=== PATIENT | female | born 1955 | race Caucasian/White ===

== ENCOUNTER → 2018-04-02 09:02 | Outpatient (CLI) | payer OTHER, SELFPAY ==
[2018-04-02 10:41] LABS: ALB/GLOB Ratio 1.1 RATIO (0.9-2.4); AST(SGOT) 28 U/L (15-37); Alanine Aminotransfer ALT/SGPT 34 U/L (13-56); Albumin, Serum 3.8 g/dL (3.2-5.0); Alkaline Phosphatase 44 U/L (45-117); Anion Gap 6 (5-15); BUN 18 mg/dL (7-18); Calcium,Total 8.6 mg/dL (8.5-10.1); Chloride 101 mmol/L (98-107); Creatinine, Serum 0.69 mg/dL (0.55-1.02); EST Glomerular Filtration Rate 90 mL/min (>60); Est Glom Filt Rate - Afr Amer 109 mL/min (>60); Globulin 3.6 g/dL (2.2-4.2); Glucose 93 mg/dL (74-106); Potassium 3.6 mmol/L (3.5-5.1); Protein, Total 7.4 g/dL (6.4-8.2); Sodium Level 137 mmol/L (136-145)
== END ==
PROVIDERS: Family Provider Family Medicine; PCP Family Medicine; Referring Provider Family Medicine; Visit Provider Family Medicine
DX: Z00.00 Encounter for general adult medical examination without abnormal findings (principal)
CPT/HCPCS: 36415; 80053

== ENCOUNTER → 2021-04-03 13:33 | Outpatient (CLI) | payer MEDICARE, OTHER, SELFPAY ==
--- NOTE | 2021-04-03 13:37 | BI_ITS ---
MAMMOGRAPHY - BILATERAL SCREENING 3-D TOMOSYNTHESIS REASON FOR EXAM: Female, 65 years old. Routine screening PERTINENT HISTORY: No significant family history. TECHNIQUE: 2-D mammograms and 3-D Tomosynthesis of the breast (s) were performed. CAD was performed. COMPARISON: 2016 FINDINGS: The breast composition is heterogeneously dense that can obscure small breast masses. Scattered benign calcifications are seen. No dense spiculated masses or suspicious microcalcifications are identified. No architectural distortion is identified. There is no skin thickening or retraction. There has been no significant change since the prior study. BI/SCRN MAMM (CAD)W/SHELLY BILAT IMPRESSION: No mammographic signs of malignancy. Routine yearly mammograms recommended. ASSESSMENT CATEGORY: BIRADS Category 2: Benign. A letter regarding these results will be sent to the patient by the facility within 30 days. FOLLOW UP RECOMMENDATION: Yearly follow up mammogram recommended. (A) Approximately 10% of breast cancers are not detected by mammography. A normal mammogram should not delay biopsy of a clinically suspicious abnormality. Electronically Signed: Darrell Bradford MD at 10:17 EST , Service support ,
== END ==
PROVIDERS: PCP Family Medicine; Referring Provider Family Medicine; Visit Provider Family Medicine
DX: Z12.31 Encounter for screening mammogram for malignant neoplasm of breast (principal)
CPT/HCPCS: 77063; 77067

== ENCOUNTER → 2022-03-10 | Outpatient (CLI) | payer MEDICARE, OTHER, SELFPAY ==
[2022-03-10 12:18] LABS: Absolute Lymphocyte Count 1.31 X10^3/uL (0.83-4.51); Absolute Neutrophil Count 2.7 X10^3/uL (2.0-7.7); Basophil# 0.02 X10^3/uL; Basophil% 0.4 % (0-1); Eosinophil# 0.04 X10^3/uL; Eosinophils% 0.9 % (0-5); Hematocrit 37.9 % (37-47); Hemoglobin 12.7 g/dL (12.0-15.0); Lymphocyte # 1.31 X10^3/ul (0.83-4.51); Mean Corp Hgb Conc 33.5 g/dL (32-36); Mean Corpuscular Hgb 33.7 pg (27.0-32.0); Mean Corpuscular Volume 100.5 fL (81-99); Monocyte# 0.39 X10^3/uL; Monocyte% 8.6 % (0-10); NRBC Flagged by Analyzer 0 % (0-5); Neutrophil # 2.74 X10^3/uL (2.7-7.7); Neutrophil % 60.9 % (47-70); Platelet Count 228 K/mm3 (150-450); RBC Distribution Width CV 13.9 % (11.6-14.6); RBC Distribution Width SD 51.2 fl (35.1-43.9); Red Blood Count 3.77 M/mm3 (4.2-5.4); White Blood Count 4.5 K/mm3 (4.4-11.0)
[2022-03-10 13:44] LABS: AST(SGOT) 34 U/L (15-37); Alanine Aminotransfer ALT/SGPT 43 U/L (13-56); Albumin, Serum 3.7 g/dL (3.2-5.0); Alkaline Phosphatase 43 U/L (45-117); Anion Gap 8 (5-15); BUN 20 mg/dL (7-18); BUN/Creat Ratio 26.5 RATIO (10-20); Chloride 101 mmol/L (98-107); Cholesterol 238 mg/dL (200); Creatinine, Serum 0.76 mg/dL (0.55-1.02); EST Glomerular Filtration Rate 81 mL/min (>60); Est Glom Filt Rate - Afr Amer 98 mL/min (>60); Globulin 3.7 g/dL (2.2-4.2); Glucose 96 mg/dL (74-106); High Density Lipoprotein 85 mg/dL; Potassium 3.8 mmol/L (3.5-5.1); Protein, Total 7.4 g/dL (6.4-8.2); Sodium Level 139 mmol/L (136-145); Triglycerides 63 mg/dL; Very Low Density Lipoprotein 13 mg/dL (5-40)
[2022-03-10 13:59] LABS: Hemoglobin A1c 5.9 % (3.8-5.6)
== END | disposition home or self-care (01) ==
LOC: BFHLAB 08:14
PROVIDERS: PCP Family Medicine; Visit Provider Family Medicine
DX: Z00.00 Encounter for general adult medical examination without abnormal findings (principal); R74.8 Abnormal levels of other serum enzymes; R73.01 Impaired fasting glucose
CPT/HCPCS: 36415; 80053; 80061; 83036; 85025

== ENCOUNTER 2022-04-16 09:36 | Outpatient (CLI) | payer MEDICARE, OTHER, SELFPAY ==
--- NOTE | 2022-04-16 09:39 | BI_ITS ---
MAMMOGRAPHY - BILATERAL SCREENING REASON FOR EXAM: Female, 66 years old. Routine annual screening examination. PERTINENT HISTORY: Non-contributory. TECHNIQUE: Digital bilateral breast shelly (3D mammographic acquisition) in the CC and MLO projections. 2-D mediolateral oblique (MLO) and craniocaudad (CC) views of both breasts were obtained. CAD: Full Field Digital Mammography with Computer Added Detection was performed. COMPARISON: 04/03/2021, 04/15/2016 FINDINGS: Breast Composition: The breasts are heterogeneously dense, which may obscure small masses. There are no dominant masses or suspicious calcifications. No other significant abnormalities are identified. There has been no significant change since the prior study. BI/SCRN MAMM (CAD)W/SHELLY BILAT IMPRESSION: Stable bilateral screening mammogram. Yearly follow-up mammogram recommended. (A) ASSESSMENT CATEGORY: BIRADS Category 1: Negative. A letter regarding these results will be sent to the patient by the facility within 30 days. Approximately 10% of breast cancers are not detected by mammography. A normal mammogram should not delay biopsy of a clinically suspicious abnormality. Electronically Signed: Fredrick Hendrxi, at 14:44 EST ,
--- NOTE | 2022-04-16 10:01 | BD_ITS ---
STUDY: DUAL ENERGY X-RAY ABSORPTIOMETRY / DXA REASON FOR EXAM: Female, 66 years old. M85.89 TECHNIQUE: Bone Mineral Density (BMD) measurements of lumbar spine and bilateral hips were obtained. COMPARISON: Comparison is made with prior study dated 06/26/2015. FINDINGS: Lumbar Spine (L1-L4): g/cm2 (0.827) / T-score (-2.0) / Z-score (0.0) Findings are suggestive of osteopenia with a moderate fracture risk. Left Femur Total: g/cm2 (0.910) / T-score (-0.3) / Z-score (1.2) Left Femoral Neck: g/cm2 (0.817) / T-score (-0.3) / Z-score (1.4) Right Femur Total: g/cm2 (0.895) / T-score (-0.4) / Z-score (1.0) Right Femoral Neck: g/cm2 (0.815) / T-score (-0.3) / Z-score (1.4) The T-Scores on the most recent prior examination were: Lumbar Spine (L1-L4): There has been worsening of bone density since the previous examination. Left Femur Total: which represents a worsening of 17.6%. Right Femur Total: which represents a worsening of 16.9%. BD/Dexa Bone Density Study IMPRESSION: The patient is considered osteopenic as outlined below according to World Julito Organization (WHO) criteria with a moderate fracture risk. There has been worsening of bone density since the previous examination. Reference Information: The T-score is the number of standard deviations above or below the standard which is normal for young adults at their peak bone mineral density. The World Health Organization (WHO) interprets the T-scores as follows: Above -1 Normal bone density Between -1 and -2.5 Osteopenia Equal to / or below -2.5 Osteoporosis As a practical clinical guideline, osteopenia may be graded as follows: Mild -1 through -1.5 Moderate -1.6 through -2.0 Severe -2.1 through -2.4 The Z-score is the number of standard deviations above or below age-matched controls. A Z-score of less than -1.5 would be considered abnormal. References: 1. NIH Osteoporosis and Related Bone Diseases www osteo.org 2. International Society for Clinical Densitometry www iscd.org 3. National Osteoporosis Foundation www nof.org Electronically Signed: Cayden Harrington MD at 15:00 EST ,
== END 2022-04-16 23:59 | disposition home or self-care (01) ==
LOC: OPBD 09:36
PROVIDERS: PCP Family Medicine; Visit Provider Family Medicine
DX: Z12.31 Encounter for screening mammogram for malignant neoplasm of breast (principal); M85.89 Other specified disorders of bone density and structure, multiple sites; N95.1 Menopausal and female climacteric states
CPT/HCPCS: 77063; 77067; 77080

== ENCOUNTER 2022-05-07 09:31 | Observation (INO) | payer MEDICARE, OTHER, SELFPAY ==
[2022-05-07] VITALS (11 sets, daily range): BP systolic 111–154; BP diastolic 71–85; PULSE 55–66; RESP 16–24; TEMP 36.2–37; O2SAT 93–100; BMI 24.4; BMI 23.4
--- NOTE | 2022-05-07 09:42 | EKG12_ITS ---
Test Reason : CP Blood Pressure : / mmHG Vent. Rate : 056 BPM Atrial Rate : 056 BPM P-R Int : 168 ms QRS Dur : 078 ms QT Int : 462 ms P-R-T Axes : 072 -41 -07 degrees QTc Int : 445 ms Sinus bradycardia Possible Left atrial enlargement Left axis deviation Nonspecific ST abnormality Abnormal ECG Confirmed by VERNON SIDDIQUI, MANUEL ([id number]), editor sound YANELY ALONSO ([id number]) on 05/09/2022 10:43:28 AM Referred By: MONIQUE Confirmed By:ELLYN JUNIOR MD
--- NOTE | 2022-05-07 09:43 | ED.VIS.CHEST ---
HPI History of Present Illness Chief Complaint: Chest Pain Narrative Narrative: 66-year-old female who denies significant past medical history presents with left shoulder and arm pain that began at 5:00 this morning, almost 5 hours ago. She states she got up to go to the bathroom, did not necessarily wake her from sleep. She felt pain in her left shoulder and pain going down her left arm. She was nauseated and queasy and maybe a little lightheaded, but denies any vomiting. No shortness of breath or diaphoresis. The queasiness lasted a few hours until maybe 30 minutes ago. States the pain is relatively constant. She does relate history that she was lifting weights on Thursday and may have felt this pain yesterday. She denies any leg swelling. Factors. PFSH PFSH Medical History no medical history Home Medications cholecalciferol (vitamin D3) 25 mcg (1,000 unit) tablet (Vitamin D3) 25 mcg PO DAILY 05/07/22 [History Last Taken Unknown] multivitamin 1 tab PO DAILY 05/07/22 [History Last Taken Unknown] Allergy/AdvReac Type Severity Reaction Status Date / Time Sulfa (Sulfonamide Allergy Hives Verified 05/07/22 09:31 Antibiotics) Social History Smoking Status: Never smoker ROS ROS ED ROS Narrative Constitutional: No fever, no chills. HEENT: No sore throat. No neck pain. No loss of vision. No rhinorrhea. Cardiovascular: No chest pain. Left shoulder pain and pain down left arm. No palpitations. No pedal edema. Respiratory: No cough, no shortness of breath. Abdominal: No abdominal pain. Positive nausea. No vomiting. Genitourinary: No dysuria. No hematuria. Musculoskeletal: No myalgias. No arthralgias. Neurologic: No headaches. No dizziness. No lightheadedness. Skin: No rash. No change in color. Psychiatric: No depression. No anxiety. EXAM Physical Exam Narrative Exam Narrative: Afebrile. Vital signs noted. HEENT: Normocephalic. Atraumatic. PERRL, EOMI. Neck soft and supple. No point tenderness or step off. Cardiovascular: Regular rate and rhythm. No murmurs, rubs, or gallops appreciated. Respiratory: No tachypnea. Lungs clear to auscultation bilaterally. Gastrointestinal: Abdomen soft, nontender, with normoactive bowel sounds. No rebound or guarding. Neurological: Awake. Alert. Nonfocal, nonlateralizing. Skin: No rash. Normal color. No pallor. Musculoskeletal: No pedal edema. Full range of motion extremities. Const Vital Signs: 05/07/22 09:31 05/07/22 09:38 05/07/22 09:59 Temperature 97.5 F L Temperature Source Temporal Pulse Rate 57 L Respiratory Rate 16 Respiratory Effort Normal Respiratory Pattern Normal Blood Pressure 154/76 H Blood Pressure Mean 102 Pulse Ox 98 99 Oxygen Delivery Method Room Air Room Air 05/07/22 10:36 05/07/22 12:00 05/07/22 13:00 Temperature Temperature Source Pulse Rate 55 L 56 L 60 Respiratory Rate 16 24 H 19 H Respiratory Effort Respiratory Pattern Blood Pressure 111/71 126/75 H 123/73 H Blood Pressure Mean 84 92 89 Pulse Ox 100 100 99 Oxygen Delivery Method Room Air Room Air Room Air Heart Score History: Slightly/Non-Suspicious ECG: Normal Age: >/= 65 years Risk Factors: No Risk Factors Troponin: >1 - <3 Normal Limit Score: 3 MDM MDM MDM Narrative Medical decision making narrative: Chest pain work-up was pursued. EKG interpreted by myself demonstrates sinus bradycardia at 56 bpm without ectopy. She may have slight ST depression in leads V4 through V6 and laterally by 1 mm. No STEMI. She was administered aspirin. She has slightly elevated blood pressure of 154/76 without history of hypertension, however this may be situational. Blood pressure has normalized. CBC shows normal white count of 6.0 with hemoglobin 13.3, hematocrit 39.5. Platelet count normal at 218. She had already taken 162 mg of baby aspirin so she was given an additional 162. Potassium slightly low at 3.3. This will be replaced orally. BUN and creatinine are normal. Glucose appropriately elevated at 158 with an anion gap low at 3. High-sensitivity troponin initially is 86. I will discuss patient with cardiology. Chest x-ray interpreted by myself shows no acute process. Initial high-sensitivity troponin is elevated at 86, above the normal. Repeat is 83. I discussed patient with Dr. Naylor with cardiology who states that while the patient should be brought into the hospital for stress testing, that heparin can be avoided emergently and deferred. I will discuss patient with the hospitalist. I discussed the patient with Dr. Vogt. Disposition is assigned to observation in stable condition. Lab Data Attestation: I reviewed the patient's lab results. Labs: Laboratory Results - last 24 hr 05/07/22 05/07/22 05/07/22 09:40 09:40 12:20 WBC 6.0 RBC 4.01 L Hgb 13.3 Hct 39.5 MCV 98.5 MCH 33.2 H MCHC 33.7 RDW Std Deviation 45.8 H RDW Coeff of Shady 12.7 Plt Count 218 MPV 9.4 Immature Gran % (Auto) 0.200 Neut % (Auto) 64.6 Lymph % (Auto) 26.5 Leslie % (Auto) 8.4 Eos % (Auto) 0.3 Baso % (Auto) 0.0 Absolute Neuts (auto) 3.9 Absolute Lymphs (auto) 1.58 Nucleated RBC % 0 Sodium 134 L Potassium 3.3 L Chloride 100 Carbon Dioxide 31.0 Anion Gap 3 L BUN 17 Creatinine 0.68 Estim Creat Clear Calc 46.50 Est GFR (MDRD) Af Amer 111 Est GFR (MDRD) Non-Af 91 BUN/Creatinine Ratio 25.0 H Glucose 158 H Calcium 9.0 Troponin I High Sens 86 H 83 H Radiography Diagnostic Testing: Clinical Impression(s) from Imaging Studies Chest X-Ray 05/07/22 10:00 IMPRESSION: Borderline cardiomegaly. The lungs are clear. Electronically Signed: Cayden Harrington MD at 10:27 EST , Discharge Plan Dx/Rx/DC Orders Clinical Impression: Shoulder pain, Left arm pain, Anginal equivalent, Elevated troponin Disposition Disposition: Acute Care Hospital [facility]
[2022-05-07 09:50] LABS: Absolute Lymphocyte Count 1.58 X10^3/uL (0.83-4.51); Absolute Neutrophil Count 3.9 X10^3/uL (2.0-7.7); Eosinophil# 0.02 X10^3/uL; Eosinophils% 0.3 % (0-5); Hematocrit 39.5 % (37-47); Hemoglobin 13.3 g/dL (12.0-15.0); Lymphocyte # 1.58 X10^3/ul (0.83-4.51); Lymphocyte % 26.5 % (19-41); Mean Corp Hgb Conc 33.7 g/dL (32-36); Mean Corpuscular Hgb 33.2 pg (27.0-32.0); Mean Corpuscular Volume 98.5 fL (81-99); Mean Platelet Vol. 9.4 fl (6.2-12.0); Monocyte% 8.4 % (0-10); NRBC Flagged by Analyzer 0 % (0-5); Neutrophil # 3.85 X10^3/uL (2.7-7.7); Neutrophil % 64.6 % (47-70); Platelet Count 218 K/mm3 (150-450); RBC Distribution Width CV 12.7 % (11.6-14.6); RBC Distribution Width SD 45.8 fl (35.1-43.9); Red Blood Count 4.01 M/mm3 (4.2-5.4)
--- NOTE | 2022-05-07 10:00 | RAD_ITS ---
STUDY: X-RAY CHEST REASON FOR EXAM: Female, 66 years old. Left shoulder and left arm pain. TECHNIQUE: Single AP portable view of the chest. COMPARISON: None. FINDINGS: EKG electrodes are seen. The lungs are clear and expanded. There is no demonstrated pleural abnormality. There is borderline cardiomegaly. Normal mediastinum and walter. Normal visualized pulmonary arteries. Normal visualized aortic arch and descending thoracic aorta. Normal visualized thoracic spine. Normal visualized ribs, clavicles, and shoulders. There is no demonstrated abnormality of the visualized soft tissue structures of the upper abdomen. RAD/Chest 1 View (Portable) IMPRESSION: Borderline cardiomegaly. The lungs are clear. Electronically Signed: Cayden Harrington MD at 10:27 [facility] ,
[2022-05-07 10:04] LABS: Anion Gap 3 (5-15); BUN 17 mg/dL (7-18); Chloride 100 mmol/L (98-107); Creatinine, Serum 0.68 mg/dL (0.55-1.02); EST Glomerular Filtration Rate 91 mL/min (>60); Est Glom Filt Rate - Afr Amer 111 mL/min (>60); Glucose 158 mg/dL (74-106); Potassium 3.3 mmol/L (3.5-5.1); Sodium Level 134 mmol/L (136-145); Troponin-I HS (w/2H Reflex) 86 pg/mL (3.0-54.0)
[2022-05-07] MEDS: Aspirin 81 MG TAB.CHEW 324 MG PO (10:33)
[2022-05-07 11:47] LABS: Reflex Troponin-HS? (from REC) Y
[2022-05-07] MEDS: Potassium Chloride Oral Tablet 20 MEQ 40 MEQ PO ×2 (12:15→18:08)
[2022-05-07 12:48] LABS: Troponin-I HS 83 pg/mL (3.0-54.0)
--- NOTE | 2022-05-07 13:16 | HP.PCM.HOS_ITS ---
HPI - General General Date of Admission: 05/07/22 Date of Service: 05/07/22 Chief Complaint: Atypical left scapular and arm pain HPI Narrative MIGUEL EVANS, is a 66 F relatively healthy woman with no history of coronary artery disease came to ED for concern of atypical anginal pain. Patient had left scapular pain that radiates to left inner arm and elbow that lasted for about half an hour yesterday. Yesterday she did usual house chores like cleaning of her home and attributed to that. She also does exercise walking about 1 mile daily and a little bit weight lifting. Today she also had similar left scapular pain with radiation to arm and she was concerned therefore came to ED. Left scapular pain lasted for about 1 to 2-hour and got better when she took aspirin 162 mg at home. She also felt dizzy lightheaded and vertigo that lasted for half an hour. She denies shortness of breath. She does not have chronic heart disease or lung disease. She denies smoking alcohol use or substance use. Her father had history of early coronary disease and at massive heart attack when he was 59. Her mother also had a stroke and diabetes melitis Twelve-lead EKG in ER shows sinus bradycardia at 56, LAD with nonspecific ST-T changes. She had EKG in February 2004 and was similar sinus rhythm 57 bpm. Troponins were mildly elevated. [facility] Medical History Migraines Medical History no medical history Home Medications RELIEF FACTOR 1 tab PO/SL DAILY [facility]MMUNE [facility] 05/07/22 [History Last Taken 05/06/22] aspirin 81 mg chewable tablet 81 mg PO DAILY HEALTH MAINTENANCE 05/07/22 [History Last Taken 05/07/22] cholecalciferol (vitamin D3) 25 mcg (1,000 unit) tablet (Vitamin D3) 25 mcg PO DAILY 05/07/22 [History Last Taken 05/06/22] multivitamin 1 tab PO DAILY SUPPLEMENT 05/07/22 [History Last Taken 05/06/22] Allergy/AdvReac Type Severity Reaction Status Date / Time Sulfa (Sulfonamide Allergy Hives Verified 05/07/22 09:31 Antibiotics) Surgical History History of carpal tunnel surgery of right wrist Social History Smoking Status: Never smoker ROS ROS Narrative Constitutional: Denies fever, URI symptoms. HEENT: No cough. Had COVID infection about 2 years ago reports systems reviewed and no addt'l complaints, except as documented Respiratory/Chest: As described in HPI Gastrointestinal: Denies coffee ground emesis, hematemesis or vomiting Genitourinary: Denies burning urination or new urinary tract symptoms Musculoskeletal: Denies joint pain and limited range of motion. Has good exercise capacity Neurologic: Denies seizure-like activity. No strokelike symptoms, focal weakness or numbness. skin: No ulcer. No rash Endocrinology: Reports systems reviewed and no addt'l complaints, except as do cumented Hematologic/Lymphatic: Reports systems reviewed and no addt'l complaints, except as documented Rest 14 ROS are negative except as mentioned in HPI Vital Signs Vital Signs Vital Signs: 05/07/22 09:31 05/07/22 09:38 05/07/22 09:59 Temperature 97.5 F L Temperature Source Temporal Pulse Rate 57 L Respiratory Rate 16 Respiratory Effort Normal Respiratory Pattern Normal Blood Pressure 154/76 H Blood Pressure Mean 102 Pulse Ox 98 99 Oxygen Delivery Method Room Air Room Air 05/07/22 10:36 05/07/22 12:00 05/07/22 13:00 Temperature Temperature Source Pulse Rate 55 L 56 L 60 Respiratory Rate 16 24 H 19 H Respiratory Effort Respiratory Pattern Blood Pressure 111/71 126/75 H 123/73 H Blood Pressure Mean 84 92 89 Pulse Ox 100 100 99 Oxygen Delivery Method Room Air Room Air Room Air Weight Weight: 142 lb 4.8 oz Body Mass Index (BMI) 24.4 Physical Exam Narrative Physical exam General: Alert, Oriented x3, Cooperative HEENT: Atraumatic, PERRLA, EOMI, Normocephalic Oral: No Gingival or Mucosal Lesions/ Ulcerations Neck: Supple, No JVD, Negative Carotid Bruits Lungs: Air entry diminished in bilateral lung bases. No crepitation/rhonchi Cardiovascular: Sinus bradycardia, Normal S1, Normal S2, midsystolic murmur LLSB and right second ICS Abdomen: Bowel Sounds Present, Soft, Non Tender, Non-Distended : No renal angle tenderness. No suprapubic tenderness. Extremities: No edema, Capillary Refill Less than 3 Seconds Skin: No rashes, No breakdown Musculoskeletal: No Tenderness to Palpation of Joints or Extremities, muscle strength 5/5 at major joints Neurological: Cranial nerves II-XII grossly intact, DTR 2+/4 and Symmetrical, Neuro grossly intact Psych/Mental Status: Normal Affect, Appropriate. Results Lab / Micro Data Result Diagrams: 05/07/22 09:40 05/07/22 09:40 Labs: Laboratory Results - last 24 hr 05/07/22 09:40: WBC 6.0, RBC 4.01 L, Hgb 13.3, Hct 39.5, MCV 98.5, MCH 33.2 H, MCHC 33.7, RDW Std Deviation 45.8 H, RDW Coeff of Shady 12.7, Plt Count 218, MPV 9.4, Immature Gran % (Auto) 0.200, Neut % (Auto) 64.6, Lymph % (Auto) 26.5, [place] % (Auto) 8.4, Eos % (Auto) 0.3, Baso % (Auto) 0.0, Absolute Neuts (auto) 3.9, Absolute Lymphs (auto) 1.58, Nucleated RBC % 0 05/07/22 09:40: Sodium 134 L, Potassium 3.3 L, Chloride 100, Carbon Dioxide 31.0, Anion Gap 3 L, BUN 17, Creatinine 0.68, Estim Creat Clear Calc 46.50, Est GFR (MDRD) Af Amer 111, Est GFR (MDRD) Non-Af 91, BUN/Creatinine Ratio 25.0 H, Glucose 158 H, Calcium 9.0, Troponin I High Sens 86 H 05/07/22 12:20: Troponin I High Sens 83 H Radiology Impression Chest X-Ray 05/07/22 10:00 IMPRESSION: Borderline cardiomegaly. The lungs are clear. Electronically Signed: Cayden Harrington MD at 10:27 EST , Assessment & Plan Assessment/Plan (1) Anginal equivalent: PLAN: Plan This 66-year-old female relatively healthy came to ED for concern of anticoagulant 1. Left periscapular with radiation to arm concern for angina: Patient is being admitted as an observation status in PCU on telemetry. KAT RISK SCORE is 4 with age, aspirin use, angina 2 episodes and positive cardiac marker. Cycle high/troponin. ED physician discussed with Dr. Naylor. Troponins are mildly elevated and plateau 86 and 83. EKG nondiagnostic. Treadmill nuclear stress test ordered for tomorrow a.m. Patient looks dehydrated IV fluid Ringer lactate ordered. Fasting profile and TSH tomorrow AM. It seems patient takes baby aspirin for health maintenance 2. Hypokalemia: Potassium replaced. Serum magnesium and phosphorus level normal. Repeat potassium tomorrow a.m. 3. Remote history of migraine: Patient has not had recent migraine. She is not on any prophylactic migraine medication or acute headache relief medication 4. VTE prophylaxis, moderate risk: Lovenox 40 subcu daily. Living will/advanced directive/end of life care: Patient does not have living will or advanced directive. Her is next to kin to make decision after her. After discussion of benefits/risks procedures involved with full code, DNR CC arrest and DNR CC, the patient is unclear about the CODE STATUS but want to keep full code until further decision is made Patient does want artificial life support including intubation, tube feed, ventilator and/chest compression, central venous catheter, vasopressor and DC shock if needed Total time spent in [id number] encounter in discussion of advanced direct shabbir 16 minutes. Clinical Impression(s) from Imaging Studies Chest X-Ray 05/07/22 10:00 IMPRESSION: Borderline cardiomegaly. The lungs are clear. Laboratory Results 05/07/22 09:40: WBC 6.0, RBC 4.01 L, Hgb 13.3, Hct 39.5, MCV 98.5, MCH 33.2 H, MCHC 33.7, RDW Std Deviation 45.8 H, RDW Coeff of Shady 12.7, Plt Count 218, MPV 9.4, Immature Gran % (Auto) 0.200, Neut % (Auto) 64.6, Lymph % (Auto) 26.5, [place] % (Auto) 8.4, Eos % (Auto) 0.3, Baso % (Auto) 0.0, Absolute Neuts (auto) 3.9, Absolute Lymphs (auto) 1.58, Nucleated RBC % 0 05/07/22 09:40: Sodium 134 L, Potassium 3.3 L, Chloride 100, Carbon Dioxide 31.0, Anion Gap 3 L, BUN 17, Creatinine 0.68, Estim Creat Clear Calc 46.50, Est GFR (MDRD) Af Amer 111, Est GFR (MDRD) Non-Af 91, BUN/Creatinine Ratio 25.0 H, Glucose 158 H, Calcium 9.0, Troponin I High Sens 86 H 05/07/22 12:20: Troponin I High Sens 83 H 05/07/22 12:20: Phosphorus 2.9, Magnesium 2.1 Charges/Coding Visit Charges OBSV E&M: 60935 Initial observation care L3 Procedures Hospitalists Procedures: 65027 Advncd Care Plan 30 Min
[2022-05-07 13:40] LABS: Magnesium 2.1 mg/dL (1.6-2.6); Phosphorus 2.9 mg/dL (2.5-4.9)
[2022-05-07 17:10] LABS: Troponin-I HS 86 pg/mL (3.0-54.0)
[2022-05-07] MEDS: Enoxaparin 40 MG/0.4 ML Syringe SC (17:25)
[2022-05-07] MEDS: Lactated Ringers 1,000 ML 100 ML IV (17:25)
[2022-05-08] VITALS (7 sets, daily range): BP systolic 108–117; BP diastolic 68–81; PULSE 55–90; RESP 16–18; TEMP 36.6–36.8; O2SAT 98–100
[2022-05-08] MEDS: Lactated Ringers 1,000 ML 100 ML IV (02:25)
--- NOTE | 2022-05-08 05:55 | EKG12_ITS ---
Test Reason : AM EKG Blood Pressure : / mmHG Vent. Rate : 059 BPM Atrial Rate : 059 BPM P-R Int : 168 ms QRS Dur : 076 ms QT Int : 450 ms P-R-T Axes : 019 -30 -20 degrees QTc Int : 445 ms Sinus bradycardia Left axis deviation Abnormal ECG When compared with ECG of 07-MAY-2022 09:37, MANUAL COMPARISON REQUIRED, DATA IS UNCONFIRMED Confirmed by VERNON SIDDIQUI, MANUEL ([id number]), website/blog editor YANELY ALONSO ([id number]) on 05/09/2022 10:51:11 AM Referred By: NANY Confirmed By:ELLYN JUNIOR MD
[2022-05-08] MEDS: Aspirin E.C. 81 MG Tablet PO (06:39)
[2022-05-08 06:48] LABS: Anion Gap 7 (5-15); BUN 11 mg/dL (7-18); Calcium,Total 9.1 mg/dL (8.5-10.1); Chloride 103 mmol/L (98-107); Cholesterol 260 mg/dL (200); Creatinine, Serum 0.65 mg/dL (0.55-1.02); EST Glomerular Filtration Rate 97 mL/min (>60); Est Glom Filt Rate - Afr Amer 117 mL/min (>60); Glucose 97 mg/dL (74-106); High Density Lipoprotein 88 mg/dL; Potassium 3.6 mmol/L (3.5-5.1); Sodium Level 138 mmol/L (136-145); Thyroid Stim Hormone (TSH) 8.32 uIU/mL (0.358-3.74); Triglycerides 75 mg/dL; Very Low Density Lipoprotein 15 mg/dL (5-40)
--- NOTE | 2022-05-08 09:37 | DCINST_ITS ---
Discharge Instructions Diet Discharge Diet: Low fat / Low cholesterol Activity Weight Bearing Status: Weight bearing as tolerated Dressing / Incision Call your doctor if you observe: Fever of 101 or Higher, Coldness, Increased P ain, Numbness or Tingling, Change in Color, Inability to urinate, Inability to have a bowel movement, Using more than 1 pad per hour, Shortness of breath, Dizziness, Fainting spells, Swelling in the ankles, Chest pain, Prolonged hiccupping, Increased palpitations (irregular heartbeat) and Calf discomfort Follow Up Care Test Results: Test results from this visit will be discussed in further detail at your follow- up appointment, if applicable. Discharge Plan Admission Admit Date/Time: 05/07/22 13:11 Primary Reason for Your Visit: ATYPICAL CHEST PAIN Attending Provider: Sean Vogt Primary Care Provider: Bee Flor Discharge Orders/Prescriptions Prescriptions: New atorvastatin 40 mg tablet 40 mg PO QHS Qty: 30 2RF Continued cholecalciferol (vitamin D3) [Vitamin D3] 25 mcg (1,000 unit) Tablet 25 mcg PO DAILY multivitamin Tablet 1 tab PO DAILY aspirin 81 mg Tablet,Chewable 81 mg PO DAILY RELIEF FACTOR 1 tab PO/SL DAILY Referrals / Follow Up: Bee Flor MD [Primary Care Provider] - Disposition Disposition (needs filled in before D/C Order can be placed): Home, Self Care
[2022-05-08] MEDS: Multivitamins,Therapeutic Tablet 1 TABLET PO (10:46)
[2022-05-08] MEDS: Cholecalciferol (VIT D3) 25 MCG TABLET (1,000 UNITS) PO (10:46)
--- NOTE | 2022-05-08 15:01 | PCM.DC.SUM ---
Providers Date of Admission: 05/07/22 Date of Discharge: 05/08/22 Primary Care Physician: Dr. Bee Flor MD Reason For Visit: ATYPICAL CHEST PAIN Diagnosis Discharge Diagnosis (1) Anginal equivalent: Status: Acute Code(s): I20.8 - Other forms of angina pectoris Plan This 66-year-old female relatively healthy came to ED for concern of anticoagulant 1. Left periscapular with radiation to arm concern for angina: Patient is being admitted as an observation status in PCU on telemetry. KAT RISK SCORE is 4 with age, aspirin use, angina 2 episodes and positive cardiac marker. Cycle high/troponin. ED physician discussed with Dr. Naylor. Troponins are mildly elevated and plateau 86 and 83 in nondiagnostic range for acute OK. EKG nondiagnostic. Treadmill nuclear stress test ordered for tomorrow a.m. Patient looks dehydrated IV fluid Ringer lactate was given. Fasting profile shows elevated LDL 157, total cholesterol 216. TSH 8.32, free T4 normal. Prescription for atorvastatin 40 mg sent to patient's pharmacy. Since patient might have subclinical hypothyroidism. Needs to repeat thyroid function test by PCP after 3 months. 2020 stress test was done and did not show any ischemia. OK/ACS ruled out 2. Hypokalemia: Potassium replaced. Serum magnesium and phosphorus level normal. Hypokalemia corrected 3. Remote history of migraine: Patient has not had recent migraine. She is not on any prophylactic migraine medication or acute headache relief medication 4. VTE prophylaxis, moderate risk: Lovenox 40 subcu daily. Laboratory Results 05/07/22 16:16: Troponin I High Sens 86 H 05/08/22 05:36: Sodium 138, Potassium 3.6, Chloride 103, Carbon Dioxide 28.0, Anion Gap 7, BUN 11, Creatinine 0.65, Estim Creat Clear Calc 46.50, Est GFR (MDRD) Af Amer 117, Est GFR (MDRD) Non-Af 97, BUN/Creatinine Ratio 17.0, Glucose 97, Calcium 9.1, Triglycerides 75, Cholesterol 260 H, LDL Cholesterol 157 H, VLDL Cholesterol 15, HDL Cholesterol 88, TSH 8.32 H 05/08/22 05:36: Free T4 1.17 Living will/advanced directive/end of life care: Patient does not have living will or advanced directive. Her is next to kin to make decision after her. After discussion of benefits/risks procedures involved with full code, DNR CC arrest and DNR CC, the patient is unclear about the CODE STATUS but want to keep full code until further decision is made Patient does want artificial life support including intubation, tube feed, ventilator and/chest compression, central venous catheter, vasopressor and DC shock if needed Total time spent in [id number] encounter in discussion of advanced directive 16 minutes. Clinical Impression(s) from Imaging Studies Chest X-Ray 05/07/22 10:00 IMPRESSION: Borderline cardiomegaly. The lungs are clear. Medications at Discharge Home Medications RELIEF FACTOR 1 tab PO/SL DAILY IMMUNE HEALTH 05/07/22 aspirin 81 mg chewable tablet 81 mg PO DAILY HEALTH MAINTENANCE 05/07/22 cholecalciferol (vitamin D3) 25 mcg (1,000 unit) tablet (Vitamin D3) 25 mcg PO DAILY 05/07/22 multivitamin 1 tab PO DAILY SUPPLEMENT 05/07/22 atorvastatin 40 mg tablet 40 mg PO QHS #30 tabs 05/08/22 Physical Exam Narrative Physical exam General: Alert, Oriented x3, Cooperative HEENT: Atraumatic, PERRLA, EOMI, Normocephalic Oral: No Gingival or Mucosal Lesions/ Ulcerations Neck: Supple, No JVD, Negative Carotid Bruits Lungs: Air entry diminished in bilateral lung bases. No crepitation/rhonchi Cardiovascular: Sinus bradycardia, Normal S1, Normal S2, midsystolic murmur LLSB and right second ICS Abdomen: Bowel Sounds Present, Soft, Non Tender, Non-Distended : No renal angle tenderness. No suprapubic tenderness. Extremities: No edema, Capillary Refill Less than 3 Seconds Skin: No rashes, No breakdown Musculoskeletal: No Tenderness to Palpation of Joints or Extremities, muscle strength 5/5 at major joints Neurological: Cranial nerves II-XII grossly intact, DTR 2+/4 and Symmetrical, Neuro grossly intact Psych/Mental Status: Normal Affect, Appropriate. Weight / BMI Weight Weight: 138 lb 0.15 oz Body Mass Index (BMI) 23.4 ABG / Lab / Microbiology Data Result Diagrams: 05/07/22 09:40 05/08/22 05:36 Laboratory: Laboratory Results - last 24 hr 05/07/22 16:16: Troponin I High Sens 86 H 05/08/22 05:36: Sodium 138, Potassium 3.6, Chloride 103, Carbon Dioxide 28.0, Anion Gap 7, BUN 11, Creatinine 0.65, Estim Creat Clear Calc 46.50, Est GFR (MDRD) Af Amer 117, Est GFR (MDRD) Non-Af 97, BUN/Creatinine Ratio 17.0, Glucose 97, Calcium 9.1, Triglycerides 75, Cholesterol 260 H, LDL Cholesterol 157 H, VLDL Cholesterol 15, HDL Cholesterol 88, TSH 8.32 H D/C Instructions Discharge Diet: Low fat / Low cholesterol Weight Bearing Status: Weight bearing as tolerated Call your doctor if you observe: Fever of 101 or Higher, Coldness, Increased Pain, Numbness or Tingling, Change in Color, Inability to urinate, Inability to have a bowel movement, Using more than 1 pad per hour, Shortness of breath, Dizziness, Fainting spells, Swelling in the ankles, Chest pain, Prolonged hiccupping, Increased palpitations (irregular heartbeat) and Calf discomfort Meaningful Use Info Meaningful Use Diagnoses (Choose all that apply): None applicable Discharge Plan Admission Admit Date/Time: 05/07/22 13:11 Primary Reason for Your Visit: ATYPICAL CHEST PAIN Attending Provider: Sean Vogt Primary Care Provider: Bee Flor Discharge Orders/Prescriptions Prescriptions: New atorvastatin 40 mg tablet 40 mg PO QHS Qty: 30 2RF Continued cholecalciferol (vitamin D3) [Vitamin D3] 25 mcg (1,000 unit) Tablet 25 mcg PO DAILY multivitamin Tablet 1 tab PO DAILY aspirin 81 mg Tablet,Chewable 81 mg PO DAILY RELIEF FACTOR 1 tab PO/SL DAILY Referrals / Follow Up: Bee Flor MD [Primary Care Provider] - Disposition Disposition (needs filled in before D/C Order can be placed): Home, Self Care Charges/Coding Visit Charges OBSV E&M: 00159 Observation care discharge
--- NOTE | 2022-05-08 15:18 | CASEMGMT ---
GOOD CM in to complete LOWERY form with patient. RN GARRETT explained LOWERY form to patient, patient voiced understanding. Patient signed LOWERY form and filed in chart. Patient provided with copy of signed LOWERY Form. Patient had no further questions or concerns at this time.
[2022-05-08 15:49] LABS: T4 Free Direct 1.17 ng/dL (0.76-1.46)
--- NOTE | 2022-05-08 16:34 | STRESSREP ---
Stress Test Report Date: 05/08/2022 Procedure: Exercise tolerance test/imaging study Indications: Chest pain Consent: Per the patient Procedure: The patient exercised on a Axel protocol for 9 minutes achieving a peak heart rate of 157 bpm (103% predicted maximal heart rate) with a peak blood pressure 164/60 mmHg and a peak MET capacity of 10.1 METs. The baseline ECG demonstrated normal sinus rhythm. The peak exercise ECG demonstrated no significant ischemic changes. EKG during recovery revealed no significant ischemic changes [There were no cardiac dysrhythmias pretest, during exercise, or recovery]. The functional capacity was considered excellent for age. There was [no complaint of chest discomfort during exercise or recovery]. The examination was discontinued secondary to achieving target heart rate. Impression: 1. Technically adequate (percent predicted maximal heart rate greater than 85%) exercise tolerance test 2. Stress test is negative for exercise-induced EKG changes of ischemia 3. The test test is negative for exercise-induced chest pain 4. Functional capacity is excellent for age 5. Nuclear images pending Myocardial perfusion imaging study: Technique: The patient was injected with 11.3 mCi of technetium 99m Cardiolite and subsequently rest SPECT Cardiolite nuclear imaging was obtained in the horizontal long, vertical long, and short axis views. The patient exercised on a Axel protocol. Please see above for details. The patient was injected with 33.9 mCi of technetium 99m Cardiolite and subsequently stress SPECT Cardiolite nuclear imaging was obtained in the horizontal long, vertical long, and short axis views. A gated Cardiolite study at peak stress was obtained. Interpretation: Rest and stress SPECT Cardiolite nuclear imaging status post realignment, normalization, and attenuation correction, demonstrates overall normal myocardial radioisotope uptake. The gated Cardiolite study demonstrates no regional wall motion abnormalities. The reported LVEF is greater than 70%. Impression: 1. There is no evidence of significant ischemia or infarction. 2. The gated Cardiolite study reports an LVEF of greater than 70%. This note was generated with [employer] software. It may contain incorrect words, spelling, and punctuation that were not noted in checking the note before signing.
== END 2022-05-08 15:01 | disposition home or self-care (01) ==
LOC: ED 12:55 → PCU 13:24
PROVIDERS: Admitting Provider Internal Medicine; Emergency Provider Emergency Medicine; PCP Family Medicine; Visit Provider Internal Medicine
DX: I20.8 Other forms of angina pectoris (principal); R00.1 Bradycardia, unspecified; Z79.82 Long term (current) use of aspirin; R03.0 Elevated blood-pressure reading, without diagnosis of hypertension; M79.622 Pain in left upper arm; M25.512 Pain in left shoulder; E87.6 Hypokalemia; Z82.49 Family history of ischemic heart disease and other diseases of the circulatory system; Z86.16 Personal history of COVID-19
CPT/HCPCS: 36415; 71045; 78452; 80048; 80061; 83735; 84100; 84439; 84443; 84484; 85025; 93005; 93017; 96360; 96361; 96372; 99218; 99285; A9500; J7120; A4216; G0378

== ENCOUNTER → 2022-07-03 | Outpatient (CLI) | payer MEDICARE, OTHER, SELFPAY ==
[2022-07-03 18:30] LABS: T4 Free Direct 0.97 ng/dL (0.76-1.46); Thyroid Stim Hormone (TSH) 2.51 uIU/mL (0.358-3.74)
[2022-07-07 16:09] LABS: Thyroid Peroxidase AB 12 IU/mL (0-34)
[2022-07-07 23:23] LABS: Thyroglobulin Antibody < 1.0 IU/mL (0.0-0.9)
== END | disposition home or self-care (01) ==
LOC: BFHLAB 14:03
PROVIDERS: PCP Family Medicine; Visit Provider Family Medicine
DX: E03.9 Hypothyroidism, unspecified (principal)
CPT/HCPCS: 36415; 84439; 84443; 86376; 86800

== ENCOUNTER → 2023-04-28 | Outpatient (CLI) | payer MEDICARE, OTHER, SELFPAY ==
--- NOTE | 2023-04-28 07:43 | BI_ITS ---
MAMMOGRAPHY - BILATERAL SCREENING REASON FOR EXAM: Female, 67 years old. Routine annual screening examination. PERTINENT HISTORY: Non-contributory. TECHNIQUE: Digital bilateral breast shelly (3D mammographic acquisition) in the CC and MLO projections. 2-D mediolateral oblique (MLO) and craniocaudad (CC) views of both breasts were obtained. CAD: Full Field Digital Mammography with Computer Added Detection was performed. COMPARISON: Comparison is made with prior study dated April 16, 2022 and April 03, 2021. FINDINGS: Breast Composition: The breasts are heterogeneously dense, which may obscure small masses. There are no dominant masses or suspicious calcifications. No other significant abnormalities are identified. There has been no significant change since the prior study. BI/SCRN MAMM (CAD)W/SHLELY BILAT IMPRESSION: Stable bilateral screening mammogram. Yearly follow-up mammogram recommended. (A) ASSESSMENT CATEGORY: BIRADS Category 1: Negative. A letter regarding these results will be sent to the patient by the facility within 30 days. Approximately 10% of breast cancers are not detected by mammography. A normal mammogram should not delay biopsy of a clinically suspicious abnormality. [id number] Electronically Signed: Cayden Harrington MD at 8:48 EST ,
== END | disposition home or self-care (01) ==
LOC: OPBI 07:42
PROVIDERS: PCP Family Medicine; Referring Provider Family Medicine; Visit Provider Family Medicine
DX: Z12.31 Encounter for screening mammogram for malignant neoplasm of breast (principal)
CPT/HCPCS: 77063; 77067

== ENCOUNTER → 2024-04-29 | Outpatient (CLI) | payer MEDICARE, OTHER, SELFPAY ==
--- NOTE | 2024-04-29 12:09 | BI_ITS ---
MAMMOGRAPHY - BILATERAL SCREENING REASON FOR EXAM: Female, 68 years old. Routine annual screening examination. PERTINENT HISTORY: Non-contributory. TECHNIQUE: Digital bilateral breast shelly (3D mammographic acquisition) in the CC and MLO projections. 2-D mediolateral oblique (MLO) and craniocaudad (CC) views of both breasts were obtained. CAD: Full Field Digital Mammography with Computer Added Detection was performed. COMPARISON: Comparison is made with prior study April 28, 2023 and April 16, 2022. FINDINGS: Breast Composition: The breasts are heterogeneously dense, which may obscure small masses. There are no dominant masses or suspicious calcifications. No other significant abnormalities are identified. There has been no significant change since the prior study. BI/SCRN MAMM (CAD)W/SHELLY BILAT IMPRESSION: Stable bilateral screening mammogram. Yearly follow-up mammogram recommended. (A) ASSESSMENT CATEGORY: BIRADS Category 1: Negative. A letter regarding these results will be sent to the patient by the facility within 30 days. Approximately 10% of breast cancers are not detected by mammography. A normal mammogram should not delay biopsy of a clinically suspicious abnormality. [id number] Electronically Signed: Cayden Harrington MD at 12:50 EST ,
== END | disposition home or self-care (01) ==
LOC: OPBI 12:06
PROVIDERS: PCP Family Medicine; Referring Provider Family Medicine; Visit Provider Family Medicine
DX: Z12.31 Encounter for screening mammogram for malignant neoplasm of breast (principal)
CPT/HCPCS: 77063; 77067

== ENCOUNTER → 2025-03-30 | Outpatient (CLI) | payer MEDICARE, OTHER, SELFPAY ==
[2025-03-30 12:34] LABS: Hematocrit 38.4 % (37-47); Hemoglobin 12.9 g/dL (12.0-15.0); Immature Granulocytes Count 0.010 X10^3/uL (0.0-0.0); Mean Corp Hgb Conc 33.6 g/dL (32-36); Mean Corpuscular Volume 99.5 fL (81-99); Mean Platelet Vol. 9.7 fl (6.2-12.0); NRBC Flagged by Analyzer 0 % (0-5); Platelet Count 258 K/mm3 (150-450); RBC Distribution Width CV 13.8 % (11.6-14.6); RBC Distribution Width SD 50.9 fl (35.1-43.9); Red Blood Count 3.86 M/mm3 (4.2-5.4); White Blood Count 4.8 K/mm3 (4.4-11.0)
[2025-03-30 13:22] LABS: AST(SGOT) 30 U/L (<=31); Alanine Aminotransfer ALT/SGPT 25 U/L (<=34); Albumin, Serum 4.2 g/dL (3.4-4.8); Alkaline Phosphatase 48 U/L (35-104); Anion Gap 9 (5-15); BUN 19 mg/dL (4-19); BUN/Creat Ratio 34.9 RATIO (10-20); Calcium,Total 9.3 mg/dL (7.6-11.0); Carbon Dioxide 28.8 mmol/L (21.0-32.0); Chloride 99 mmol/L (98-108); Cholesterol 252 mg/dL (<=200); Globulin 3.1 g/dL (2.2-4.2); Glucose 97 mg/dL (70-99); Low Density Lipoprotein Calc. 155 mg/dL; Potassium 3.9 mmol/L (3.3-5.1); Triglycerides 80 mg/dL; Very Low Density Lipoprotein 16 mg/dL (5-40); cholesterol:hdl ratio screen 3.02
== END | disposition home or self-care (01) ==
LOC: BFHLAB 08:38
PROVIDERS: PCP Family Medicine; Visit Provider Family Medicine
DX: R73.01 Impaired fasting glucose (principal); E78.5 Hyperlipidemia, unspecified
CPT/HCPCS: 36415; 80053; 80061; 83036; 85025

== ENCOUNTER → 2025-05-02 | Outpatient (CLI) | payer MEDICARE, OTHER, SELFPAY ==
--- NOTE | 2025-05-02 10:00 | BI_ITS ---
EXAM: SCRN MAMM (CAD)W/SHELLY BILAT DATE: 05/02/2025 CLINICAL HISTORY: F, Age 69 y/o , SCREENING No family history. TECHNIQUE: Procedure Code: [id number] Modality: MG Procedure: SCRN MAMM (CAD)W/SHELLY BILAT COMPARISON: Prior exam(s) dated April 29, 2024.. FINDINGS: TISSUE DENSITY: The breasts are heterogeneously dense, which may obscure small masses. Bilateral Breast Mammographic Findings: No significant masses, calcifications or other abnormalities are identified. No suspicious masses, areas of developing architectural distortion, or suspicious calcifications. There has been no significant interval change. Stable BI/SCRN MAMM (CAD)W/SHELLY BILAT IMPRESSION: Stable bilateral screening mammogram. OVERALL FINAL ASSESSMENT BI-RADS 1: NEGATIVE. RECOMMENDATION: Routine annual follow-up in 1 Year Additional Recommendation none A letter with findings and recommendations will be mailed to the patient. Reading Location: [place] [id number]
== END | disposition home or self-care (01) ==
LOC: OPBI 09:58
PROVIDERS: PCP Family Medicine; Referring Provider Family Medicine; Visit Provider Family Medicine
DX: Z12.31 Encounter for screening mammogram for malignant neoplasm of breast (principal)
CPT/HCPCS: 77063; 77067